=== PATIENT | male | born 1965 | race Caucasian/White ===

== ENCOUNTER 2017-05-14 11:17 | Observation (INO) | payer OTHER ==
[2017-05-14] VITALS (9 sets, daily range): BP systolic 128–145; BP diastolic 68–81; PULSE 60–88; RESP 17–20; TEMP 97.8–98.7; O2SAT 94–99
[~2017-05-14] VITALS: Ht 180.3 cm; Wt 143.0 kg
--- NOTE | 2017-05-14 11:52 | PD ---
HPI Chief Complaint: Chest Pain Time Seen by Provider: 11:27 Travel History International Travel<30 days: No Contact w/Intl Traveler<30days: No Traveled to known affect area: No History of Present Illness HPI 51 y/o male presents with central chest pain that goes up into his neck and down his arm. He denies other specific complaints. He states this is been happening over the past couple of weeks. He states [facility]. he states 5 years ago when he had chest pain he could not afford it workup so is never had a workup before. He states he does not have any heart issues that he knows about. He states he does not follow with a dance teacher. Quality is pressure. Severity is moderate. He denies specific modifying factors. PFS Past Medical History Medical History: Denies Significant Hx (patient has not seen a physician in years) Past Surgical History Surgical History: No Previous Surgery Social History Tobacco Use: No Review of Systems Except as stated in HPI: all other systems reviewed are Neg Physical Exam Narrative GENERAL: 51-year-old male in no apparent distress SKIN: Focused skin assessment warm/dry. HEAD: Atraumatic. Normocephalic. EYES: Pupils equal and round. No scleral icterus. No injection or drainage. ENT: No nasal bleeding or discharge. Mucous membranes pink and moist. NECK: Trachea midline. No JVD. CARDIOVASCULAR: Regular rate and rhythm. RESPIRATORY: No accessory muscle use. Clear to auscultation. Breath sounds equal bilaterally. GASTROINTESTINAL: Abdomen soft, non-tender, nondistended. MUSCULOSKELETAL: No obvious deformities. No clubbing. No cyanosis. No edema. NEUROLOGICAL: Awake and alert. No obvious cranial nerve deficits. Motor grossly within normal limits. Normal speech. PSYCHIATRIC: Appropriate mood and affect; insight and judgment normal. Data Data Last Documented VS Vital Signs Date Time Temp Pulse Resp B/P (MAP) Pulse Ox O2 Delivery O2 Flow Rate FiO2 05/14/17 12:30 72 17 145/72 (96) 98 Room Air 05/14/17 11:24 98.7 Orders Orders Electrocardiogram (05/14/17 11:32) Ckmb (Isoenzyme) Profile (05/14/17 11:32) Complete Blood Count With Diff (05/14/17 11:32) Comprehensive Metabolic Panel (05/14/17 11:32) Magnesium (Mg) (05/14/17 11:32) Prothrombin Time / Inr (Pt) (05/14/17 11:32) Act Partial Throm Time (Ptt) (05/14/17 11:32) Troponin I (05/14/17 11:32) Ecg Monitoring (05/14/17 11:32) Bilateral Bp Monitoring (05/14/17 11:32) Iv Access Insert/Monitor (05/14/17 11:32) Oximetry (05/14/17 11:32) Chest, Pa & Lat (05/14/17 11:32) CKMB (05/14/17 12:10) CKMB% (05/14/17 12:10) Admit Order (Ed Use Only) (05/14/17 13:37) Labs Laboratory Tests Test 05/14/17 12:10 White Blood Count 9.1 TH/MM3 Red Blood Count 4.98 MIL/MM3 Hemoglobin 14.7 GM/DL Hematocrit 42.9 % Mean Corpuscular Volume 86.3 FL Mean Corpuscular Hemoglobin 29.6 PG Mean Corpuscular Hemoglobin Concent 34.3 % Red Cell Distribution Width 13.9 % Platelet Count 244 TH/MM3 Mean Platelet Volume 8.5 FL Neutrophils (%) (Auto) 77.4 % Lymphocytes (%) (Auto) 15.2 % Monocytes (%) (Auto) 6.3 % Eosinophils (%) (Auto) 0.6 % Basophils (%) (Auto) 0.5 % Neutrophils # (Auto) 7.0 TH/MM3 Lymphocytes # (Auto) 1.4 TH/MM3 Monocytes # (Auto) 0.6 TH/MM3 Eosinophils # (Auto) 0.1 TH/MM3 Basophils # (Auto) 0.0 TH/MM3 CBC Comment DIFF FINAL Differential Comment Prothrombin Time 10.7 SEC Prothromb Time International Ratio 1.1 RATIO Activated Partial Thromboplast Time 27.3 SEC Blood Urea Nitrogen 14 MG/DL Creatinine 0.91 MG/DL Random Glucose 91 MG/DL Total Protein 7.3 GM/DL Albumin 3.8 GM/DL Calcium Level 8.5 MG/DL Magnesium Level 2.0 MG/DL Alkaline Phosphatase 77 U/L Aspartate Amino Transf (AST/SGOT) 23 U/L Alanine Aminotransferase (ALT/SGPT) 36 U/L Total Bilirubin 0.4 MG/DL Sodium Level 142 MEQ/L Potassium Level 3.8 MEQ/L Chloride Level 109 MEQ/L Carbon Dioxide Level 26.5 MEQ/L Anion Gap 7 MEQ/L Estimat Glomerular Filtration Rate 88 ML/MIN Total Creatine Kinase 134 U/L Creatine Kinase MB LESS THAN 0.5 NG/ML Troponin I LESS THAN 0.02 NG/ML MDM Medical Decision Making Medical Screen Exam Complete: Yes Emergency Medical Condition: Yes Medical Record Reviewed: Yes (Past history confirmed) Interpretation(s) CBC & BMP Diagram 05/14/17 12:10 Total Protein 7.3, Albumin 3.8, Calcium Level 8.5, Magnesium Level 2.0, Alkaline Phosphatase 77, Aspartate Amino Transf (AST/SGOT) 23, Alanine Aminotransferase (ALT/SGPT) 36, Total Bilirubin 0.4 Last 24 hours Impressions Chest X-Ray 05/14/17 1132 Signed Impressions: Service Date/Time: Sunday, May 14, 2017 11:56 - CONCLUSION: 1. Mild cardiomegaly. No focal infiltrate or effusion. Erik Arredondo MD Differential Diagnosis Cardiac, gastritis, musculoskeletal Narrative Course We will check blood work, EKG and monitor ed workup no emergent process, agrees to [facility] observation Diagnosis Primary Impression: Chest pain Qualified Codes: R07.9 - Chest pain, unspecified Admitting Information Admitting Physician Requests: Observation Lida Syed MD May 14, 2017 11:52
--- NOTE | 2017-05-14 12:13 | RADRPT ---
EXAM DATE/TIME: 05/14/2017 11:56 [facility] COMPARISON: No previous studies available for comparison. INDICATIONS : Pain in chest for several weeks, left arm pain and numbness today, nonsmoker MEDICAL HISTORY : None. SURGICAL HISTORY : None. ENCOUNTER: Initial ACUITY: 1 month PAIN SCORE: 8/10 LOCATION: Bilateral chest FINDINGS: PA and lateral views of the chest demonstrate the lungs to be symmetrically aerated without evidence of mass, infiltrate or effusion. The cardiomediastinal contours are mildly prominent. Osseous struct ures are intact. CONCLUSION: 1. Mild cardiomegaly. No focal infiltrate or effusion. Erik Arredondo MD on May 14, 2017 at 12:10 Board Certified Radiologist. This report was verified electronically.
[2017-05-14 12:51] LABS: BASOPHIL % 0.5 % (0.0-2.0); EOSINOPHIL # 0.1 TH/MM3 (0-0.4); EOSINOPHIL % 0.6 % (0.0-4.0); HEMATOCRIT 42.9 % (39.0-51.0); HEMOGLOBIN 14.7 GM/DL (13.0-17.0); LYMPH % 15.2 % (9.0-44.0); LYMPHOCYTE # 1.4 TH/MM3 (1.0-4.8); MEAN CELL VOLUME 86.3 FL (80.0-100.0); MEAN CORPUSCULAR HEMOGLOBIN 29.6 PG (27.0-34.0); MEAN CORPUSCULAR HGB CONC 34.3 % (32.0-36.0); MEAN PLATELET VOLUME 8.5 FL (7.0-11.0); MONO % 6.3 % (0.0-8.0); MONOCYTE # 0.6 TH/MM3 (0-0.9); NEUT % 77.4 % (16.0-70.0); PLATELET COUNT 244 TH/MM3 (150-450); RED BLOOD COUNT 4.98 MIL/MM3 (4.50-5.90); RED CELL DISTRIBUTION WIDTH 13.9 % (11.6-17.2); WHITE BLOOD COUNT 9.1 TH/MM3 (4.0-11.0)
[2017-05-14 13:10] LABS: INTERNATIONAL NORMALIZED RATIO 1.1 RATIO; PROTHROMBIN TIME - PATIENT 10.7 SEC (9.8-11.6)
[2017-05-14 13:13] LABS: ALBUMIN 3.8 GM/DL (3.4-5.0); ALT (GPT) 36 U/L (12-78); AST (GOT) 23 U/L (15-37); BICARBONATE 26.5 MEQ/L (21.0-32.0); BLOOD UREA NITROGEN 14 MG/DL (7-18); CALCIUM 8.5 MG/DL (8.5-10.1); CHLORIDE 109 MEQ/L (98-107); CREATININE 0.91 MG/DL (0.60-1.30); GLOMERULAR FILTRATION RATE 88 ML/MIN (>89); GLUCOSE,RANDOM 91 MG/DL (74-106); SODIUM (NA) 142 MEQ/L (136-145)
[2017-05-14 13:17] LABS: ALKALINE PHOSPHATASE 77 U/L (45-117); TOTAL BILIRUBIN ADULT 0.4 MG/DL (0.2-1.0); TOTAL PROTEIN 7.3 GM/DL (6.4-8.2); TROPONIN I LESS THAN 0.02 NG/ML (0.02-0.05)
[2017-05-14] MEDS ORDERED: ACETAMINOPHEN 500 MG CPLT PO PRN (14:00)
[2017-05-14] MEDS ORDERED: SODIUM CHLORIDE 0.9% FLUSH 10 ML FLUSH IV FLUSH PRN (14:00)
[2017-05-14] MEDS ORDERED: NITROGLYCERIN 0.4 MG SL 25 TABS/BTL SL PRN (14:00)
[2017-05-14] MEDS ORDERED: ONDANSETRON HCL 4 MG/2 ML VIAL IV PUSH PRN (14:00)
--- NOTE | 2017-05-14 14:30 | HHI.HP ---
HPI Primary Care Physician [facility] Chief Complaint Chest pain History of Present Illness 51-year-old male without any known significant medical history presents to emergency room for further evaluation of intermittent chest discomfort and left arm pain. Onset 2 weeks ago. Location midchest. Characterized as indigestion, denying feelings of burning or sour taste. Denies chest pain, reporting "chest just doesn't feel right." No radiation of pain. No associated symptoms of nausea , vomiting, dyspnea, or diaphoresis. Duration generally lasts one hour. No known precipitating or relieving factors. Onset of left elbow pain 3 days ago. Characterized as ache and "spasms," with associated left hand becoming numb. No past or recent injury to left arm or cervical region. No precipitating or relieving factors. Duration left elbow pain constant with occasional radiation to left shoulder. Due to combined chest discomfort and left elbow pain, went to [facility]. [facility] directed him to ER for further evaluation, sending him her via EMS. Review of Systems General: No fatigue,weakness, fever, chills, or recent illness. Has been a general state of health. HEENT: No GUAJARDO, no vision changes, no nasal congestion or drainage, no dysphasia CV: As stated above, denies ever having chest pain. No current discomfort. RESP: No SOB, cough, or wheeze. GI: No nausea, vomiting, bowel changes, diarrhea, constipation, pain, distention , melena, or blood in the stool. No change in appetite, no unintentional weight gain or weight loss. : No dysuria, urgency, frequency EXT: No lower leg edema, no paraesthesias MS: No discomfort, no remote or recent injuries, or change in ROM. NEURO: No difficulty with balance, LOC, motor/sensory deficits PSYCH: No anxiety or depression SKIN: No rashes, no concerning lesions Past Family Social History Allergies: Coded Allergies: No Known Allergies (Unverified , 05/14/17) Past Medical History None Past Surgical History None Reported Medications None Active Ordered Medications Current Medications Medications (Trade) Dose Ordered Sig/Yaneth Route Start Time Stop Time Status Last Admin (NS Flush) 2 ml UNSCH PRN IV FLUSH 05/14/17 14:00 (NS Flush) 2 ml BID IV FLUSH 05/14/17 21:00 (Tylenol) 500 mg Q4H PRN PO 05/14/17 14:00 (Zofran Inj) 4 mg Q6H PRN IV PUSH 05/14/17 14:00 (Nitrostat Sl) 0.4 mg Q5M PRN SL 05/14/17 14:00 (Aspirin) 325 mg DAILY PO 05/15/17 09:00 Family History Unknown, patient adopted. Social History No known hypertension, hyperlipidemia, hypertension, or coronary artery disease. Lifelong nonsmoker. Denies any alcohol or illegal drug use. 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 Past cardiac testing None Physical Exam Vital Signs Vital Signs Date Time Temp Pulse Resp B/P (MAP) Pulse Ox O2 Delivery O2 Flow Rate FiO2 05/14/17 12:30 72 17 145/72 (96) 98 Room Air 05/14/17 11:30 98 Room Air 05/14/17 11:30 97 Room Air 05/14/17 11:24 98.7 88 17 143/78 (99) 97 Physical Exam GENERAL: Alert WN, WD, NAD, pleasant, obese, male HEAD: NC, AT CV: RRR, without murmur, rub, gallop, no JVD, S1-S2 no S3-S4. RESP: Clear lungs throughout bilateral, no crackles, wheeze, rhonchi, symmetrical chest rise, nonlabored, able to speak in full sentences ABD: Soft, NT, ND, no masses, positive bowel tones EXT: Pulses +24, no dependent edema MS: Normal tone 4 extremities, nontender, no obvious deformities, full range of motion NEURO: CN II through CN XII grossly intact, motor strength 5/5 PSYCH: A+O 3, pleasant affect, appropriate speech, mood, insight and judgment SKIN: Normal turgor, normal texture, no lesions, no rashes, brisk cap refill, even hair distribution Laboratory Laboratory Tests Test 05/14/17 12:10 White Blood Count 9.1 Red Blood Count 4.98 Hemoglobin 14.7 Hematocrit 42.9 Mean Corpuscular Volume 86.3 Mean Corpuscular Hemoglobin 29.6 Mean Corpuscular Hemoglobin Concent 34.3 Red Cell Distribution Width 13.9 Platelet Count 244 Mean Platelet Volume 8.5 Neutrophils (%) (Auto) 77.4 Lymphocytes (%) (Auto) 15.2 Monocytes (%) (Auto) 6.3 Eosinophils (%) (Auto) 0.6 Basophils (%) (Auto) 0.5 Neutrophils # (Auto) 7.0 Lymphocytes # (Auto) 1.4 Monocytes # (Auto) 0.6 Eosinophils # (Auto) 0.1 Basophils # (Auto) 0.0 CBC Comment DIFF FINAL Differential Comment Prothrombin Time 10.7 Prothromb Time International Ratio 1.1 Activated Partial Thromboplast Time 27.3 Blood Urea Nitrogen 14 Creatinine 0.91 Random Glucose 91 Total Protein 7.3 Albumin 3.8 Calcium Level 8.5 Magnesium Level 2.0 Alkaline Phosphatase 77 Aspartate Amino Transf (AST/SGOT) 23 Alanine Aminotransferase (ALT/SGPT) 36 Total Bilirubin 0.4 Sodium Level 142 Potassium Level 3.8 Chloride Level 109 Carbon Dioxide Level 26.5 Anion Gap 7 Estimat Glomerular Filtration Rate 88 Total Creatine Kinase 134 Creatine Kinase MB LESS THAN 0.5 Troponin I LESS THAN 0.02 Result Diagram: 05/14/17 1210 05/14/17 1210 Imaging Last 48 hours Impressions Chest X-Ray 05/14/17 1132 Signed Impressions: Service Date/Time: Sunday, May 14, 2017 11:56 - CONCLUSION: 1. Mild cardiomegaly. No focal infiltrate or effusion. Erik Arredondo MD Course EKG 1st AVB, normal axis, minimal ST depression v3-v5 Caprini VTE Risk Assessment Caprini VTE Risk Assessment: No/Low Risk (score <= 1) Caprini Risk Assessment Model Point Value = 1 Point Value = 2 Point Value = 3 Point Value = 5 Age 41-60 Minor surgery BMI > 25 kg/m2 Swollen legs Varicose veins or History of unexplained or recurrent spontaneous Oral contraceptives or hormone replacement Sepsis (< 1 month) Serious lung disease, including pneumonia (< 1 month) Abnormal pulmonary function Acute myocardial infarction Congestive heart failure (< 1 month) History of inflammatory bowel disease Medical patient at bed rest Age 61-74 Arthroscopic surgery Major open surgery (> 45 min) Laparoscopic surgery (> 45 min) Malignancy Confined to bed (> 72 hours) Immobilizing plaster cast Central venous access Age >= 75 History of VTE Family history of VTE Factor V Leiden Prothrombin [id number] Lupus anticoagulant Anticardiolipin antibodies Elevated serum homocysteine Heparin-induced thrombocytopenia Other congenital or acquired thrombophilia Stroke (< 1 month) Elective arthroplasty Hip, pelvis, or leg fracture Acute spinal cord injury (< 1 month) Prophylaxis Regimen Total Risk Factor Score Risk Level Prophylaxis Regimen 0-1 Low Early ambulation 2 Moderate Order ONE of the following: *Sequential Compression Device (SCD) *Heparin 5000 units SQ BID 3-4 Higher Order ONE of the following medications: *Heparin 5000 units SQ TID *Enoxaparin/Lovenox 40 mg SQ daily (WT < 150 kg, CrCl > 30 mL/min) *Enoxaparin/Lovenox 30 mg SQ daily (WT < 150 kg, CrCl > 10-29 mL/min) *Enoxaparin/Lovenox 30 mg SQ BID (WT < 150 kg, CrCl > 30 mL/min) AND/OR *Sequential Compression Device (SCD) 5 or more Highest Order ONE of the following medications: *Heparin 5000 units SQ TID (Preferred with Epidurals) *Enoxaparin/Lovenox 40 mg SQ daily (WT < 150 kg, CrCl > 30 mL/min) *Enoxaparin/Lovenox 30 mg SQ daily (WT < 150 kg, CrCl > 10-29 mL/min) *Enoxaparin/Lovenox 30 mg SQ BID (WT < 150 kg, CrCl > 30 mL/min) AND *Sequential Compression Device (SCD) Assessment and Plan Assessment and Plan #1 Atypical chest pain-admitted chest pain center. Begin ruling out with 3 sets of EKGs, cardiac enzymes, and monitor on telemetry. Will be seen and evaluated by Dr. Daniel Munoz. Discussed likelihood of completing cardiac testing later this afternoon. This will be determined after being assessed by buffer machine. Patient agreeable to plan of care. Discussed importance of establishing with a primary care provider and utilizing [facility] for preventative medicine and medical management. Obtain hepatitis C panel, due to patient's reporting being told in the past he had a viral condition hepatitis C. #2 Bacterial conjunctivitis-polymyxin b-trimethoprim ophthalmic drops Victoria Gonzales May 14, 2017 14:30
[2017-05-14 15:37] LABS: TROPONIN I LESS THAN 0.02 NG/ML (0.02-0.05)
[2017-05-14] MEDS ORDERED: TRIMSOL EACH EYE (16:32)
--- NOTE | 2017-05-14 16:46 | PD.CARD.PN ---
Subjective Subjective Remarks Patient chart was reviewed, discussed with nurse practitioner, seen and examined. I am in agreement with the documented record. A pleasant obese hemmer automatic presenting with multiple varied symptoms: Chest pain is atypical, not precipitated by exertion or relieved by rest, of a typical duration, but he has mid chest and does radiate to the arm. He also complains of twitching muscle in his left arm fingers that lock up (trigger finger) and GI symptoms including rumbling abdomen, diarrhea, right upper quadrant abdominal discomfort. He also complains of some shortness of breath that this may be related to his obesity. He also mentions that several years ago when he was seen for the flu he was told that he had "some kind of virus hep C". He has no idea what this might mean. He also complains of irritated itching eyes that have been crusting overnight. Objective Medications Current Medications Medications (Trade) Dose Ordered Sig/Yaneth Route Start Time Stop Time Status Last Admin (NS Flush) 2 ml UNSCH PRN IV FLUSH 05/14/17 14:00 (NS Flush) 2 ml BID IV FLUSH 05/14/17 21:00 (Tylenol) 500 mg Q4H PRN PO 05/14/17 14:00 (Zofran Inj) 4 mg Q6H PRN IV PUSH 05/14/17 14:00 (Nitrostat Sl) 0.4 mg Q5M PRN SL 05/14/17 14:00 (Aspirin) 325 mg DAILY PO 05/15/17 09:00 (Polytrim Opht Soln) 1 drop Q6HR EACH EYE 05/14/17 18:00 UNV Vital Signs / I&O Vital Signs Date Time Temp Pulse Resp B/P (MAP) Pulse Ox O2 Delivery O2 Flow Rate FiO2 05/14/17 16:03 64 05/14/17 15:03 97.9 64 18 131/72 (91) 99 05/14/17 12:30 72 17 145/72 (96) 98 Room Air 05/14/17 11:30 98 Room Air 05/14/17 11:30 97 Room Air 05/14/17 11:24 98.7 88 17 143/78 (99) 97 Physical Exam A significantly obese gentleman resting comfortably in bed HEENT shows injected conjunctiva with a small amount of purulence at the margin Chest mildly diminished breath sounds but no rales wheezes rhonchi Cardiovascular shows regular sinus rhythm with no gallop rub or murmur Abdomen is very obese slightly tender right upper quadrant but no guarding or rebound liver or spleen cannot be felt Laboratory Laboratory Tests Test 05/14/17 12:10 05/14/17 15:05 White Blood Count 9.1 TH/MM3 Red Blood Count 4.98 MIL/MM3 Hemoglobin 14.7 GM/DL Hematocrit 42.9 % Mean Corpuscular Volume 86.3 FL Mean Corpuscular Hemoglobin 29.6 PG Mean Corpuscular Hemoglobin Concent 34.3 % Red Cell Distribution Width 13.9 % Platelet Count 244 TH/MM3 Mean Platelet Volume 8.5 FL Neutrophils (%) (Auto) 77.4 % Lymphocytes (%) (Auto) 15.2 % Monocytes (%) (Auto) 6.3 % Eosinophils (%) (Auto) 0.6 % Basophils (%) (Auto) 0.5 % Neutrophils # (Auto) 7.0 TH/MM3 Lymphocytes # (Auto) 1.4 TH/MM3 Monocytes # (Auto) 0.6 TH/MM3 Eosinophils # (Auto) 0.1 TH/MM3 Basophils # (Auto) 0.0 TH/MM3 CBC Comment DIFF FINAL Differential Comment Prothrombin Time 10.7 SEC Prothromb Time International Ratio 1.1 RATIO Activated Partial Thromboplast Time 27.3 SEC Blood Urea Nitrogen 14 MG/DL Creatinine 0.91 MG/DL Random Glucose 91 MG/DL Total Protein 7.3 GM/DL Albumin 3.8 GM/DL Calcium Level 8.5 MG/DL Magnesium Level 2.0 MG/DL Alkaline Phosphatase 77 U/L Aspartate Amino Transf (AST/SGOT) 23 U/L Alanine Aminotransferase (ALT/SGPT) 36 U/L Total Bilirubin 0.4 MG/DL Sodium Level 142 MEQ/L Potassium Level 3.8 MEQ/L Chloride Level 109 MEQ/L Carbon Dioxide Level 26.5 MEQ/L Anion Gap 7 MEQ/L Estimat Glomerular Filtration Rate 88 ML/MIN Total Creatine Kinase 134 U/L 120 U/L Creatine Kinase MB LESS THAN 0.5 NG/ML LESS THAN 0.5 NG/ML Troponin I LESS THAN 0.02 NG/ML LESS THAN 0.02 NG/ML Imaging Last 24 hours Impressions Chest X-Ray 05/14/17 1132 Signed Impressions: Service Date/Time: Sunday, May 14, 2017 11:56 - CONCLUSION: 1. Mild cardiomegaly. No focal infiltrate or effusion. Erik Arredondo MD Assessment and Plan Assessment and Plan We will rule out for ACS using standard protocol and if negative consider stress test Evaluate for possible hepatitis C in view of patient's history Treat conjunctivitis Discussed some of his other symptoms so that he understands them better Code Status Full code Discussed Condition With Discussed at some length with the patient and her nurse practitioner Daniel Munoz MD May 14, 2017 16:46
--- NOTE | 2017-05-14 17:41 | EKG ---
Date Performed: 05/14/2017 Time Performed: 11:26:32 PTAGE: 51 years EKG: Sinus rhythm MODERATE INTRAVENTRICULAR CONDUCTION DELAY BORDERLINE ECG NO PREVIOUS TRACING DOCTOR: Daniel Munoz Interpretating Date/Time 05/14/2017 17:39:36
[2017-05-14] MEDS: POLYMYXIN/TRIMETHOPRIM OPHT SOLN 10 ML BTL EACH EYE SCH (17:52)
[2017-05-14 18:48] LABS: TROPONIN I LESS THAN 0.02 NG/ML (0.02-0.05)
--- NOTE | 2017-05-14 23:03 | EKG ---
Date Performed: 05/14/2017 Time Performed: 18:40:12 PTAGE: 51 years EKG: Sinus rhythm WITH FIRST DEGREE AV BLOCK INCOMPLETE RIGHT BUNDLE BRANCH BLOCK NONSPECIFIC ST & T-WAVE ABNORMALITY ABNORMAL ECG NO PREVIOUS TRACING DOCTOR: Mika Mena Interpretating Date/Time 05/14/2017 23:02:03
[2017-05-14] MEDS: SODIUM CHLORIDE 0.9% FLUSH 10 ML FLUSH IV FLUSH SCH (23:16)
[2017-05-15] MEDS: POLYMYXIN/TRIMETHOPRIM OPHT SOLN 10 ML BTL EACH EYE SCH ×2 (00:48→06:13)
[2017-05-15 03:42] VITALS: BP 134/77; PULSE 58; RESP 18; TEMP 98.6; O2SAT 96
[2017-05-15 08:10] VITALS: PULSE 67
[2017-05-15 08:11] VITALS: BP 136/80; PULSE 64; RESP 20; TEMP 98; O2SAT 98
[2017-05-15] MEDS: SODIUM CHLORIDE 0.9% FLUSH 10 ML FLUSH IV FLUSH SCH (08:41)
[2017-05-15] MEDS ORDERED: ASPIRIN 325 MG TAB PO SCH (09:00)
[2017-05-15] MEDS ORDERED: REGADENOSON INJ 0.4 MG/5 ML SYR ONE (09:27)
--- NOTE | 2017-05-15 11:02 | RADRPT ---
EXAM DATE/TIME: 05/15/2017 09:11 [facility] COMPARISON: No previous studies available for comparison. INDICATIONS : Chest pain. Angina. DOSE: 35 mCi Tc99m Myoview at stress. 11 mCi Tc99m Myoview at rest. 0.4 mg Lexiscan STRESS SYMPTOMS: Shortness of breath, left leg pain. EJECTION FRACTION: 61% MEDICAL HISTORY : None. SURGICAL HISTORY : None. ENCOUNTER: Initial ACUITY: 1 day PAIN SCALE: 4/10 LOCATION: chest TECHNIQUE: The patient underwent pharmacologic stress with infusion of prescribed dose. Continuous ECG tracing was monitored during stress. Gated SPECT imaging was performed after stress and conventional SPECT i maging was performed at rest. The examination was performed on a SPECT/CT scanner, both attenuation and non-corrected datasets were reviewed. FINDINGS: DISTRIBUTION: The maximum perfused segment at stress is in the septal wall at the apex. PERFUSION STUDY: The pattern of perfusion at stress is within normal limits. GATED STUDY: There is intact wall motion and thickening without hypokinetic or dyskinetic segments. CONCLUSION: No areas of ischemia are seen. RISK CATEGORY: Low (<1% Annual Mortality Rate) Arash August MD on May 15, 2017 at 10:58 Board Certified Radiologist. This report was verified electronically.
--- NOTE | 2017-05-15 11:42 | HHI.DCPOC ---
Discharge Care Plan Diagnosis: (1) Atypical chest pain (2) Acute bacterial conjunctivitis of both eyes Goals to Promote Your Health * To prevent worsening of your condition and complications * To maintain your health at the optimal level Directions to Meet Your Goals Take your medications as prescribed Follow your dietary instruction Follow activity as directed Keep your appointments as scheduled Take your immunizations and boosters as scheduled If your symptoms worsen call your PCP, if no PCP go to Urgent Care Center or Emergency Room Smoking is Dangerous to Your Health. Avoid second hand smoke Call the 24-hour hour crisis hotline for domestic abuse at Victoria Gonzales May 15, 2017 11:42
--- NOTE | 2017-05-15 11:44 | HHI.DS ---
Discharge Summary Admission Date May 14, 2017 at 13:38 Discharge Date: May 15, 2017 Admitting Diagnosis chest pain CBC/BMP: 05/14/17 1210 05/14/17 1210 Significant Findings Laboratory Tests Test 05/14/17 12:10 05/14/17 15:05 05/14/17 18:05 05/15/17 07:35 Neutrophils (%) (Auto) 77.4 % (16.0-70.0) Chloride Level 109 MEQ/L (98-107) Estimat Glomerular Filtration Rate 88 ML/MIN (>89) Creatine Kinase MB LESS THAN 0.5 NG/ML LESS THAN 0.5 NG/ML Troponin I LESS THAN 0.02 NG/ML LESS THAN 0.02 NG/ML LESS THAN 0.02 NG/ML Imaging Last 48 hours Impressions Myocardial Perfusion Scan Nuc Med 05/15/17 0000 Signed Impressions: Service Date/Time: Monday, May 15, 2017 09:11 - CONCLUSION: No areas of ischemia are seen. RISK CATEGORY: Low (<1%% Annual Mortality Rate) Arash August MD Chest X-Ray 05/14/17 1132 Signed Impressions: Service Date/Time: Sunday, May 14, 2017 11:56 - CONCLUSION: 1. Mild cardiomegaly. No focal infiltrate or effusion. Erik Arredondo MD Pt Condition on Discharge: Good Discharge Disposition: Discharge Home Discharge Instructions DIET: Follow Instructions for: Heart Healthy Diet Activities you can perform: Regular-No Restrictions Victoria Gonzales May 15, 2017 11:44
--- NOTE | 2017-05-15 16:37 | EKG ---
Date Performed: 05/14/2017 Time Performed: 15:53:54 PTAGE: 51 years EKG: Sinus rhythm NORMAL ECG NO CHANGE PREVIOUS TRACING : 05/14/2017 11.26 DOCTOR: Daniel Munoz Interpretating Date/Time 05/15/2017 16:36:09
--- NOTE | 2017-05-15 16:40 | TR ---
Date Performed: 05/15/2017 Time Performed: 09:44:32 DOCTOR: Daniel Munoz DRUG LIST: CLINICAL HISTORY: ANGINA REASON FOR TEST: REASON FOR ENDING: OBSERVATION: CONCLUSION: Lexiscan stress test was performed under standard four minute protocol. Radionuclide was injected one minute prior to ending the test. No electrocardiographic abormalities were present to suggest ischemia. Nuclear imaging and interpretation are pending. COMMENTS:
== END 2017-05-15 12:38 | disposition home or self-care (01) ==
LOC: NEPC 11:17 → NEDA 13:38 → NEPGCP 14:49
PROVIDERS: ADMIT Internal Medicine Interventional Cardiology; ATTEND Internal Medicine Interventional Cardiology
DX: R07.9 Chest pain, unspecified (principal); H10.33 Unspecified acute conjunctivitis, bilateral; B19.20 Unspecified viral hepatitis C without hepatic coma; E66.9 Obesity, unspecified; I51.7 Cardiomegaly; M65.30 Trigger finger, unspecified finger; R94.31 Abnormal electrocardiogram [ECG] [EKG]; Z68.41 Body mass index [BMI] 40.0-44.9, adult
CPT/HCPCS: 71046; 78452; 80053; 82550; 82552; 83735; 84484; 85025; 85610; 85730; 86803; 93005; 93017; 99285; A9502; G0378; J2785